=== PATIENT | male | born 1960 | race African-American/Black ===

== ENCOUNTER 2019-02-26 13:21 | Inpatient (IN) | payer OTHER ==
[2019-02-26 18:06] VITALS: BMI 23.0
--- NOTE | 2019-02-26 19:03 | HP ---
CIWA Score Nausea/Vomitin-No Nausea/No Vomiting Muscle Tremors: 4-Moderate,w/Arms Extend Anxiety: 1-Mildly Anxious Agitation: 4-Moderately Restless Paroxysmal Sweats: 3 (Increased facial moisture) Orientation: 0-Oriented Tacttile Disturbances: 0-None Auditory Disturbances: 0-None Visual Disturbances: 0-None Headache: 0-None Present CIWA-Ar Total Score: 12 - Admission Criteria OASAS Guidelines: Admission for Medically Managed Detox: Requires at least one of the followin. CIWA greater than 12 2. Seizures within the past 24 hours 3. Delirium tremens within the past 24 hours 4. Hallucinations within the past 24 hours 5. Acute intervention needed for co occurring medical disorder 6. Acute intervention needed for co occurring psychiatric disorder 7. Severe withdrawal that cannot be handled at a lower level of care (continued vomiting, continued diarrhea, abnormal vital signs) requiring intravenous medication and/or fluids 8. Admission ROS [facility] Chief Complaint: Here for alcohol. Allergies/Adverse Reactions: Allergies Allergy/AdvReac Type Severity Reaction Status Date / Time No Known Allergies Allergy Verified 02/26/19 17:52 History of Present Illness: Here for detox from alcohol. States alcohol is my main problem. Alcohol use began at age 12. Current use began around 6 months ago. Cocaine/crack use began at age 12. States cocaine last used 0n 02/26/19, but does not use daily, Nicotine use began at age 12. Number of cigarettes vary - may some as little as 1 or a pack. Longest length of sobriety 2 years - approx 1994-; PMHx: LBP, Neck pain, Giuseppe knee pain DVT (many years ago). Denies recent visit w / PCP. Encouraged f/u upon discharge. MHHx: Insomnia, Depression, [place]. Denies thoughts of harming self or others. Last Provider visit @ [facility]. Patient Name: Twin Orantes Date: 1960 Address: [address] [place] [address] Sex: Male Rx Written Rx Dispensed Drug Quantity Days Supply Prescriber Name 01/29/2019 02/01/2019 zolpidem tartrate 10 mg tablet 30 30 MeetaMesha Campos 11/23/2018 12/26/2018 zolpidem tartrate 10 mg tablet 30 30 MeetaMesha Campos 10/27/2018 11/09/2018 zolpidem tartrate 10 mg tablet 30 30 Mesha Gold 08/11/2018 08/18/2018 zolpidem tartrate 10 mg tablet 30 30 Laurie Manrique S ( MSN) Exam Limitations: No Limitations - Ebola screening Have you traveled outside of the country in the last 21 days: No Have you had contact with anyone from an Ebola affected area: No Have you been sick,other than usual withdrawal symptoms: No Do you have a fever: No - Review of Systems Constitutional: No Symptoms Reported EENT: reports: Blurred Vision, Dental Problems (Cavities. Missing teeth. No pain. Chews and swallows ok.), Other (States nose itches and runs all the time - has hay fever. Does not take nay medications.) Respiratory: reports: Other (SOb when smokes cigarettes.) Cardiac: reports: No Symptoms Reported GI: reports: Diarrhea (soft/watery light brownish. Denies blood) : reports: No Symptoms Reported Musculoskeletal: reports: Back Pain (Constant achy pain in lower back and neck x 2 years. Used to take naproxen. Pain is a "7". Pain increases w/ movement. States nothing makes it better.), Joint Pain (Giuseppe knee and shoulder pain. Shoulder pain increases w/ laying on side; Knees increase w/ going up and down stairs.) Integumentary: reports: No Symptoms Reported Neuro: reports: Tremors Endocrine: reports: Increased Thirst Hematology: reports: Blood Clots (DVT (R) arm a few years ago.) Psychiatric: reports: Judgement Intact, Orientated x3, Agitated, Anxious, Depressed (Denies thoughts of harming self or others.) Patient History - Patient Medical History Hx Anemia: No Hx Asthma: No Hx Chronic Obstructive Pulmonary Disease (COPD): No Hx Cardiac Disorders: No Hx Hypertension: No Hx Hypercholesterolemia: No HX Cerebrovascular Accident: No Hx Seizures: No Hx Diabetes: No Hx Gastrointestinal Disorders: No Hx Liver Disease: No Hx Genitourinary Disorders: No Hx Sexually Transmitted Disorders: No Hx Renal Disease (ESRD): No Hx Thyroid Disease: No Hx Human Immunodeficiency Virus (HIV): No (NEGATIVE HX) Hx Hepatitis C: No Hx Depression: Yes (ON MEDS) Hx Suicide Attempt: No (DENIES) Hx Bipolar Disorder: Yes (HEMALATHA- RESPERIDAL/HALDOL/SEROQUEL/TRAZODONE) Hx Schizophrenia: No - Patient Surgical History Past Surgical History: Yes Hx Neurologic Surgery: No Hx Cataract Extraction: No Hx Cardiac Surgery: No Hx Lung Surgery: No Hx Breast Surgery: No Hx Breast Biopsy: No Hx Abdominal Surgery: No Hx Appendectomy: No Hx Cholecystectomy: No Hx Genitourinary Surgery: No Hx Section: No Hx Orthopedic Surgery: No Other Surgical History: BILATERAL HYDROCELE SX OVER 10 YRS AGO; DENTAL SX; STITCHES ON HEAD @12 YRS Anesthesia Reaction: No - PPD History Previous Implant?: Yes Documented Results: Negative w/proof Implanted On Prior [facility] Admission?: Yes Date: 04/07/16 Results: NEG 04/07/16 PPD to be Administered?: Yes - Smoking Cessation Smoking history: Current every day smoker Have you smoked in the past 12 months: Yes Aproximately how many cigarettes per day: 10 Hx Chewing Tobacco Use: No Initiated information on smoking cessation: Yes 'Breaking Loose' booklet given: 02/26/19 - Substance & Tx. History Hx Alcohol Use: Yes Hx Substance Use: Yes Substance Use Type: Alcohol, Cocaine Hx Substance Use Treatment: Yes (detox, rehab) - Substances abused Alcohol Substance route: Oral Frequency: Daily Amount used: OZ LIQUOR Age of first use: 12 Date of last use: 02/26/19 Cocaine Substance route: Smoking Frequency: 1-3 times last 30 days Amount used: 10 DIMES Age of first use: 12 Date of last use: 02/26/19 Family Disease History - Family Disease History Family Disease History: Diabetes: Father (HTN-), Other: Father, Sister ( AIDS/KIDNEY FAILURE--) Admission Physical Exam S - Vital Signs Vital Signs: Vital Signs - 24 hr 02/26/19 17:43 Temperature 98.2 F Respiratory 18 Rate Blood Pressure 116/75 - Physical General Appearance: Yes: Mild Distress, Tremorous, Irritable (Speech abrupt, truculent), Sweating (Increased facial moisture), Anxious HEENTM: Yes: EOMI, Normal ENT Inspection, Normal Voice, DONAVAN, Pharynx Normal, Rhinorrhea, Other (Missing teeth. Tooth decay on several teeth.) Respiratory: Yes: Lungs Clear, Normal Breath Sounds, No Respiratory Distress Neck: Yes: No masses,lesions,Nodules, Supple Breast: Yes: Breast Exam Deferred Cardiology: Yes: Regular Rhythm, Regular Rate, S1, S2, Bradycardia Abdominal: Yes: Normal Bowel Sounds, Non Tender, Soft, Protuberent Genitourinary: Yes: Within Normal Limits Back: Yes: Normal Inspection Musculoskeletal: Yes: full range of Motion, Gait Steady Extremities: Yes: Normal Capillary Refill, Normal Range of Motion, Tremors ( tremors at rest and increases w/ arm extension) Neurological: Yes: production trainer II-XII NML intact, Fully Oriented, Alert, Motor Strength 5/5 Integumentary: Yes: Normal Color, Dry, Warm, Diaphoresis (Increased facial moisture) Lymphatic: Yes: Within Normal Limits - Diagnostic (1) Joint pain Current Visit: Yes Status: Acute Qualifiers: Joint pain location: knee Laterality: bilateral Qualified Code(s): M25.561 - Pain in right knee; M25.562 - Pain in left knee (2) Nicotine dependence Current Visit: Yes Status: Chronic Qualifiers: Nicotine product type: cigarettes (3) Alcohol dependence with uncomplicated withdrawal Current Visit: Yes Status: Chronic (4) Chronic low back pain Current Visit: Yes Status: Chronic Qualifiers: Back pain laterality: unspecified Sciatica presence: without sciatica Qualified Code(s): M54.5 - Low back pain; G89.29 - Other chronic pain (5) Cocaine dependence, uncomplicated Current Visit: Yes Status: Chronic (6) Abnormal EKG Current Visit: Yes Status: Chronic Comment: Bradycardia Cleared for Admission S - Detox or Rehab [facility] Level of Care: Medically Managed Detox Regimen/Protocol: Librium Breathalyzer - Breathalyzer Breathalyzer: 0 Urine Drug Screen - Test Device Lot number: [id number] Expiration date: 02/18/20 - Control Is test valid?: Yes - Results Drug screen NEGATIVE: No Urine drug screen results: PARAG-Cocaine Inpatient Rehab Admission - Rehab Decision to Admit Inpatient rehab admission?: No
[2019-02-26] MEDS ORDERED: BISMUTH SUBSALICYLATE 524 MG/30 ML UD PO PRN (19:38)
[2019-02-26] MEDS ORDERED: METHOCARBAMOL 500 MG TABLET PO PRN (19:38)
[2019-02-26] MEDS ORDERED: MENTHOL/PHENOL 1 EACH UD MM PRN (19:38)
[2019-02-26] MEDS ORDERED: MELATONIN 5 MG TABLETS PO PRN (19:38)
[2019-02-26] MEDS ORDERED: MAG HYDROX/AL HYDROX/SIMETH 30 ML UNIT-DOSE CUP PO PRN (19:38)
[2019-02-26] MEDS ORDERED: ACETAMINOPHEN 325 MG TABLET (FP) PO PRN ×2 (19:38)
[2019-02-26] MEDS ORDERED: NICOTINE POLACRILEX 2 MG GUM BUC PRN (19:38)
[2019-02-26] MEDS ORDERED: MAGNESIUM CITRATE 300 ML BOTTLE PO PRN (19:38)
[2019-02-26] MEDS ORDERED: chlordiazePOXIDE HCL 10 MG CAPSULE PO PRN (19:38)
[2019-02-26] MEDS ORDERED: MAGNESIUM HYDROX 2400MG/30ML ORAL SUSPENSION 30 ML CUP PO PRN (19:38)
[2019-02-26] MEDS ORDERED: chlordiazePOXIDE HCL 25 MG CAPSULE PO ONE (20:15)
[2019-02-26] MEDS: THIAMINE HCL 100 MG TABLET (FP) PO SCH (22:55)
[2019-02-27] MEDS: chlordiazePOXIDE HCL 25 MG CAPSULE PO SCH ×3 (00:07→13:00)
[2019-02-27] MEDS: PRENATAL VITAMINS W/ FOLIC ACID TABLET (FP) PO SCH (10:20)
[2019-02-27] MEDS: NICOTINE 14 MG/24 HOURS TOPICAL PATCH TD SCH (10:20)
[2019-02-27 10:38] LABS: ALBUMIN 3.4 g/dl (3.4-5.0); ALK PHOS 68 U/L (45-117); ANION GAP 6 MMOL/L (8-16); BILIRUBIN,TOTAL 0.1 mg/dL (0.2-1); BLOOD UREA NITROGEN 12 mg/dL (7-18); CALCIUM 8.5 mg/dL (8.5-10.1); CHLORIDE 112 mmol/L (98-107); CO2 27 mmol/L (21-32); CREATININE 0.8 mg/dL (0.55-1.3); GLUCOSE,RANDOM 109 mg/dL (74-106); POTASSIUM 4.1 mmol/L (3.5-5.1); SGOT/AST 15 U/L (15-37); SGPT/ALT 28 U/L (13-61); SODIUM 145 mmol/L (136-145); TOT PROT 6.1 g/dl (6.4-8.2)
[2019-02-27 10:45] LABS: HEMATOCRIT 35.4 % (35.4-49); HEMOGLOBIN 11.8 GM/dL (11.7-16.9); MCHC 33.2 g/dl (32.0-35.9); MEAN CELL VOLUME 93.2 fl (80-96); MEAN PLT VOLUME 9.7 fl (7.5-11.1); PLATELET COUNT 258 K/MM3 (134-434); RDW 13.2 % (11.9-15.9); WHITE BLOOD COUNT 5.1 K/mm3 (4.0-10.0)
--- NOTE | 2019-02-27 10:47 | PN ---
S CIWA - CIWA Score Nausea/Vomitin Muscle Tremors: 2 Anxiety: 2 Agitation: 2 Paroxysmal Sweats: 1-Minimal Palms Moist Orientation: 0-Oriented Tacttile Disturbances: 1-Very Mild Itch/Numbness Auditory Disturbances: 1-Very Mild Visual Disturbances: 0-None Headache: 2-Mild CIWA-Ar Total Score: 13 BHS Progress Note (SOAP) Subjective: alert,irritable,anxious,interrupted sleep,tremor Objective: 02/27/19 10:46 Vital Signs Temperature 97.2 F L 02/27/19 09:37 Pulse Rate 62 02/27/19 09:37 Respiratory Rate 18 02/27/19 09:37 Blood Pressure 111/73 02/27/19 09:37 O2 Sat by Pulse Oximetry (%) 02/27/19 10:46 Laboratory Last Values Sodium 145 mmol/L (136-145) 02/27/19 07:00 Potassium 4.1 mmol/L (3.5-5.1) 02/27/19 07:00 Chloride 112 mmol/L (98-107) H 02/27/19 07:00 Carbon Dioxide 27 mmol/L (21-32) 02/27/19 07:00 Anion Gap 6 MMOL/L (8-16) L 02/27/19 07:00 BUN 12 mg/dL (7-18) 02/27/19 07:00 Creatinine 0.8 mg/dL (0.55-1.3) 02/27/19 07:00 Creat Clearance w eGFR 98.94 (>60) 02/27/19 07:00 Random Glucose 109 mg/dL (74-106) H 02/27/19 07:00 Calcium 8.5 mg/dL (8.5-10.1) 02/27/19 07:00 Total Bilirubin 0.1 mg/dL (0.2-1) L 02/27/19 07:00 AST 15 U/L (15-37) 02/27/19 07:00 ALT 28 U/L (13-61) 02/27/19 07:00 Alkaline Phosphatase 68 U/L (45-117) 02/27/19 07:00 Total Protein 6.1 g/dl (6.4-8.2) L 02/27/19 07:00 Albumin 3.4 g/dl (3.4-5.0) 02/27/19 07:00 labs pending Assessment: 02/27/19 10:47 withdrawal symptom Plan: continue detox
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
[2019-02-27 11:10] LABS: PH,URINE 6.5 (5.0-8.0); URINE APPEARANCE CLEAR; URINE BILIRUBIN NEGATIVE (NEGATIVE); URINE COLOR YELLOW; URINE GLUCOSE (UA) NEGATIVE (NEGATIVE); URINE KETONE NEGATIVE (NEGATIVE); URINE LEUK ESTERASE NEGATIVE (NEGATIVE); URINE NITRITE NEGATIVE (NEGATIVE); URINE PROTEIN NEGATIVE (NEGATIVE); URINE UROBILINOGEN 0.2 mg/dL (0.2-1.0)
--- NOTE | 2019-02-27 14:21 | EKG ---
Test Reason : Blood Pressure : / mmHG Vent. Rate : 049 BPM Atrial Rate : 049 BPM P-R Int : 150 ms QRS Dur : 090 ms QT Int : 482 ms P-R-T Axes : 056 069 078 degrees QTc Int : 435 ms SINUS BRADYCARDIA NONSPECIFIC ST ABNORMALITY ABNORMAL ECG NO PREVIOUS ECGS AVAILABLE Confirmed by MD Jaison, Mickey ([id number]) on 02/27/2019 2:20:56 PM Referred By: Confirmed By:Mickey Blackwood MD
[2019-02-27] MEDS: LITHIUM CARBONATE 300 MG CAPSULE (FP) PO SCH ×2 (20:03→21:22)
[2019-02-27] MEDS: NAPROXEN 375 MG TABLET (FP) PO PRN (20:03)
[2019-02-27] MEDS: traZODone HCL 50 MG TABLET (FP) PO SCH ×2 (20:04→21:22)
[2019-02-27] MEDS: OLANZapine 10 MG TABLET PO SCH ×2 (20:04→21:23)
[2019-02-27] MEDS ORDERED: traZODone HCL 50 MG TABLET (FP) PO SCH (22:00)
[2019-02-27] MEDS ORDERED: LITHIUM CARBONATE 300 MG CAPSULE (FP) PO SCH (22:00)
[2019-02-27] MEDS ORDERED: OLANZapine 10 MG TABLET PO SCH (22:00)
[2019-02-27] MEDS: chlordiazePOXIDE 5 MG CAPSULE PO SCH (22:17)
[2019-02-27] MEDS: THIAMINE HCL 100 MG TABLET (FP) PO SCH (22:17)
[2019-02-28] MEDS: chlordiazePOXIDE 5 MG CAPSULE PO SCH ×2 (06:16→12:28)
[2019-02-28] MEDS: PRENATAL VITAMINS W/ FOLIC ACID TABLET (FP) PO SCH (12:11)
[2019-02-28] MEDS: NICOTINE 14 MG/24 HOURS TOPICAL PATCH TD SCH (12:11)
--- NOTE | 2019-02-28 14:21 | PN ---
S CIWA - CIWA Score Nausea/Vomitin-No Nausea/No Vomiting Muscle Tremors: None Anxiety: 0-No Anxiety, at Ease Agitation: 0-Normal Activity Paroxysmal Sweats: No Perspiration Orientation: 0-Oriented Tacttile Disturbances: 0-None Auditory Disturbances: 0-None Visual Disturbances: 0-None Headache: 0-None Present CIWA-Ar Total Score: 0 BHS Progress Note (SOAP) Subjective: s- pt states he is fine- no complaints O: Vital Signs - 24 hr 02/27/19 02/27/19 02/28/19 17:22 21:51 00:30 Temperature 98.1 F 97.3 F L Pulse Rate 58 L 59 L Respiratory 18 18 18 Rate Blood Pressure 105/57 L 137/79 02/28/19 02/28/19 02/28/19 07:05 09:20 13:46 Temperature 97.3 F L 97.5 F L 98.2 F Pulse Rate 59 L 73 76 Respiratory 18 18 18 Rate Blood Pressure 99/58 L 116/57 L 116/75 Laboratory Tests 02/27/19 02/27/19 02/27/19 07:00 07:00 07:00 WBC 5.1 RBC 3.80 L Hgb 11.8 Hct 35.4 MCV 93.2 MCH 31.0 MCHC 33.2 RDW 13.2 Plt Count 258 D MPV 9.7 Sodium 145 Potassium 4.1 Chloride 112 H Carbon Dioxide 27 Anion Gap 6 L BUN 12 Creatinine 0.8 Creat Clearance w eGFR 98.94 Random Glucose 109 H Calcium 8.5 Total Bilirubin 0.1 L AST 15 ALT 28 Alkaline Phosphatase 68 Total Protein 6.1 L Albumin 3.4 Urine Color Urine Appearance Urine pH Ur Specific [place] Urine Protein Urine Glucose (UA) Urine Ketones Urine Blood Urine Nitrite Urine Bilirubin Urine Urobilinogen Ur Leukocyte Esterase RPR Titer Nonreactive 02/27/19 08:00 WBC RBC Hgb Hct MCV MCH MCHC RDW Plt Count MPV Sodium Potassium Chloride Carbon Dioxide Anion Gap BUN Creatinine Creat Clearance w eGFR Random Glucose Calcium Total Bilirubin AST ALT Alkaline Phosphatase Total Protein Albumin Urine Color Yellow Urine Appearance Clear Urine pH 6.5 Ur Specific [place] 1.008 L Urine Protein Negative Urine Glucose (UA) Negative Urine Ketones Negative Urine Blood Negative Urine Nitrite Negative Urine Bilirubin Negative Urine Urobilinogen 0.2 Ur Leukocyte Esterase Negative RPR Titer a/p: continue alcohol detox protocol- pt doing well
[2019-02-28] MEDS ORDERED: chlordiazePOXIDE HCL 10 MG CAPSULE PO PRN (21:00)
[2019-02-28] MEDS: chlordiazePOXIDE HCL 10 MG CAPSULE PO SCH (21:16)
[2019-02-28] MEDS: LITHIUM CARBONATE 300 MG CAPSULE (FP) PO SCH (21:18)
[2019-02-28] MEDS: traZODone HCL 50 MG TABLET (FP) PO SCH (21:18)
[2019-02-28] MEDS: THIAMINE HCL 100 MG TABLET (FP) PO SCH (21:18)
[2019-02-28] MEDS: OLANZapine 10 MG TABLET PO SCH (21:18)
[2019-02-28] MEDS: NAPROXEN 375 MG TABLET (FP) PO PRN (21:25)
[2019-03-01] MEDS: chlordiazePOXIDE HCL 10 MG CAPSULE PO SCH (05:32)
--- NOTE | 2019-03-01 08:58 | DS ---
[facility] Detox Discharge Summary Admission Date: 02/26/19 Discharge Date: 03/01/19 - History Present History: Alcohol Dependence, Cocaine Dependence - Physical Exam Results Vital Signs: Vital Signs Temperature 96.3 F L 03/01/19 06:23 Pulse Rate 66 03/01/19 06:23 Respiratory Rate 18 03/01/19 06:23 Blood Pressure 104/63 03/01/19 06:23 O2 Sat by Pulse Oximetry (%) - Treatment Hospital Course: Detox Protocol Followed, Detoxed Safely, Responded well, Discharged Condition Good, Rehab Referral Accepted - Medication Discharge Medications: Ambulatory Orders traZODone HCL [Desyrel -] 150 mg PO HS #30 tablet 05/20/16 Hydroxyzine HCl 10 mg PO HS 02/26/19 [place] Carbonate [Eskalith -] 900 mg PO HS 02/26/19 Olanzapine [Zyprexa] 5 mg PO BID 02/26/19 - Diagnosis (1) Alcohol dependence with uncomplicated withdrawal Current Visit: Yes Status: Chronic (2) Cocaine dependence, uncomplicated Current Visit: Yes Status: Chronic (3) Joint pain Current Visit: Yes Status: Acute Qualifiers: Joint pain location: knee Laterality: bilateral Qualified Code(s): M25.561 - Pain in right knee; M25.562 - Pain in left knee (4) Substance-induced sleep disorder Current Visit: Yes Status: Acute (5) Abnormal EKG Current Visit: Yes Status: Chronic (6) Bipolar II disorder Current Visit: Yes Status: Chronic (7) Chronic low back pain Current Visit: Yes Status: Chronic Qualifiers: Back pain laterality: unspecified Sciatica presence: without sciatica Qualified Code(s): M54.5 - Low back pain; G89.29 - Other chronic pain (8) Nicotine dependence Current Visit: Yes Status: Chronic Qualifiers: Nicotine product type: cigarettes Substance use status: uncomplicated Qualified Code(s): F17.210 - Nicotine dependence, cigarettes, uncomplicated (9) DVT of right axillary vein, chronic Current Visit: Yes Status: Resolved (10) Hydrocele of spermatic cord Current Visit: Yes Status: Resolved (11) Bipolar I disorder, most recent episode manic Current Visit: No Status: Acute - AMA Did Patient Leave Against Medical Advice: No (pt referred to [facility])
[2019-03-01 09:09] VITALS: BP 118/74; PULSE 78; TEMP 97.3
[2019-03-01] MEDS: NICOTINE 14 MG/24 HOURS TOPICAL PATCH TD SCH (11:20)
[2019-03-01] MEDS: PRENATAL VITAMINS W/ FOLIC ACID TABLET (FP) PO SCH (11:20)
== END 2019-03-01 12:05 | disposition home or self-care (01) | DRG 774 ==
LOC: YASAS 13:21 → Y6N 18:44
PROVIDERS: ADMIT Surgery; ATTEND Surgery
PROC: HZ2ZZZZ Detoxification Services for Substance Abuse Treatment (ICD-10-PCS; principal; 2019-02-26)
DX: F10.230 Alcohol dependence with withdrawal, uncomplicated (principal); F14.20 Cocaine dependence, uncomplicated; F17.210 Nicotine dependence, cigarettes, uncomplicated; F19.282 Other psychoactive substance dependence with psychoactive substance-induced sleep disorder; F31.81 Bipolar II disorder; M25.561 Pain in right knee; M25.562 Pain in left knee; R94.31 Abnormal electrocardiogram [ECG] [EKG]; M54.5 Low back pain; G89.29 Other chronic pain; R00.1 Bradycardia, unspecified; Z86.718 Personal history of other venous thrombosis and embolism
CPT/HCPCS: 36415; 71046-TC-FY; 80053; 81003; 85027; 86593; 93005; 93010

== ENCOUNTER 2022-05-31 12:11 | Inpatient (IN) | payer OTHER ==
[2022-05-31 14:18] VITALS: BMI 17.6
[2022-05-31] MEDS ORDERED: MAGNESIUM HYDROX 2400MG/30ML ORAL SUSPENSION 30 ML CUP PO PRN (15:30)
[2022-05-31] MEDS ORDERED: DICYCLOMINE HCL 10 MG CAPSULE PO PRN (15:30)
[2022-05-31] MEDS ORDERED: IBUPROFEN 400 MG TABLET (FP) PO PRN (15:30)
[2022-05-31] MEDS ORDERED: LOPERAMIDE HCL 2 MG CAPSULE PO PRN (15:30)
[2022-05-31] MEDS ORDERED: IBUPROFEN 600 MG TABLET (FP) PO PRN (15:30)
[2022-05-31] MEDS ORDERED: chlordiazePOXIDE HCL 25 MG CAPSULE PO PRN (15:30)
[2022-05-31] MEDS ORDERED: MAG HYDROX/AL HYDROX/SIMETH 30 ML UNIT-DOSE CUP PO PRN (15:30)
[2022-05-31] MEDS ORDERED: ONDANSETRON *ODT* 4 MG TABLET SL PRN (15:30)
[2022-05-31] MEDS ORDERED: BISMUTH SUBSALICYLATE 262 MG/15 ML BTL PO PRN (15:30)
[2022-05-31] MEDS ORDERED: BENZOCAINE/MENTHOL (CHLORASEPTIC ) LOZENGE MM PRN (15:30)
[2022-05-31] MEDS ORDERED: METHOCARBAMOL 500 MG TABLET PO PRN (15:30)
[2022-05-31] MEDS ORDERED: NICOTINE 10 MG CARTRIDGE (INHALER) IH PRN (15:30)
[2022-05-31] MEDS ORDERED: MAGNESIUM CITRATE 300 ML BOTTLE PO PRN (15:30)
[2022-05-31] MEDS ORDERED: ACETAMINOPHEN 325 MG TABLET (FP) PO PRN ×2 (15:30)
[2022-05-31] MEDS: hydrOXYzine PAMOATE 25 MG CAPSULE (FP) PO SCH ×2 (18:13→22:32)
[2022-05-31] MEDS: chlordiazePOXIDE HCL 25 MG CAPSULE PO SCH (22:32)
[2022-05-31] MEDS: THIAMINE HCL 100 MG TABLET (FP) PO SCH (22:32)
[2022-05-31] MEDS: MELATONIN 5 MG TABLETS PO SCH (22:32)
[2022-06-01] MEDS: chlordiazePOXIDE HCL 25 MG CAPSULE PO SCH ×4 (05:45→23:55)
[2022-06-01] MEDS: hydrOXYzine PAMOATE 25 MG CAPSULE (FP) PO SCH ×5 (05:45→23:56)
[2022-06-01] MEDS: PRENATAL VITAMINS W/ FOLIC ACID TABLET (FP) PO SCH (10:24)
[2022-06-01] MEDS: NICOTINE 14 MG/24 HOURS TOPICAL PATCH TD SCH (10:25)
[2022-06-01 11:35] LABS: HEMATOCRIT 35.9 % (35.4-49); HEMOGLOBIN 11.9 GM/dL (11.7-16.9); MCH 32.5 pg (25.7-33.7); MCHC 33.2 g/dl (32.0-35.9); PLATELET COUNT 351 10^3/uL (134-434); RBC 3.66 M/mm3 (4.00-5.60); WHITE BLOOD COUNT 4.4 K/mm3 (4.0-10.0)
[2022-06-01 12:56] LABS: CREATININE 0.7 mg/dL (0.55-1.3)
[2022-06-01 12:58] LABS: ALBUMIN 3.4 g/dl (3.4-5.0); BLOOD UREA NITROGEN 11.3 mg/dL (7-18); CALCIUM 9.9 mg/dL (8.5-10.1)
[2022-06-01 13:01] LABS: BILIRUBIN,TOTAL 0.3 mg/dL (0.2-1); TOT PROT 6.7 g/dl (6.4-8.2)
[2022-06-01] MEDS: MELATONIN 5 MG TABLETS PO SCH (22:33)
[2022-06-01] MEDS: THIAMINE HCL 100 MG TABLET (FP) PO SCH (22:33)
[2022-06-02] MEDS: chlordiazePOXIDE HCL 25 MG CAPSULE PO SCH ×4 (05:40→22:25)
[2022-06-02] MEDS: hydrOXYzine PAMOATE 25 MG CAPSULE (FP) PO SCH ×5 (05:40→22:25)
[2022-06-02] MEDS: NICOTINE 14 MG/24 HOURS TOPICAL PATCH TD SCH (10:18)
[2022-06-02] MEDS: PRENATAL VITAMINS W/ FOLIC ACID TABLET (FP) PO SCH (10:18)
[2022-06-02] MEDS: THIAMINE HCL 100 MG TABLET (FP) PO SCH (22:25)
[2022-06-02] MEDS: MELATONIN 5 MG TABLETS PO SCH (22:25)
[2022-06-03] MEDS ORDERED: chlordiazePOXIDE HCL 10 MG CAPSULE PO PRN
[2022-06-03] MEDS: chlordiazePOXIDE HCL 10 MG CAPSULE PO SCH ×4 (06:43→22:40)
[2022-06-03] MEDS: hydrOXYzine PAMOATE 25 MG CAPSULE (FP) PO SCH ×5 (06:44→22:38)
[2022-06-03] MEDS: PRENATAL VITAMINS W/ FOLIC ACID TABLET (FP) PO SCH (11:17)
[2022-06-03] MEDS: NICOTINE 14 MG/24 HOURS TOPICAL PATCH TD SCH (11:17)
[2022-06-03] MEDS: THIAMINE HCL 100 MG TABLET (FP) PO SCH (22:38)
[2022-06-03] MEDS: MELATONIN 5 MG TABLETS PO SCH (22:38)
[2022-06-04] MEDS ORDERED: chlordiazePOXIDE HCL 10 MG CAPSULE PO SCH (05:00)
[2022-06-04] MEDS: hydrOXYzine PAMOATE 25 MG CAPSULE (FP) PO SCH ×2 (06:26→10:12)
[2022-06-04 09:38] VITALS: BP 99/62; PULSE 57; TEMP 97
[2022-06-04] MEDS: PRENATAL VITAMINS W/ FOLIC ACID TABLET (FP) PO SCH (10:11)
[2022-06-04] MEDS: NICOTINE 14 MG/24 HOURS TOPICAL PATCH TD SCH (10:12)
[2022-06-05] MEDS ORDERED: chlordiazePOXIDE HCL 10 MG CAPSULE PO ONE (05:00)
== END 2022-06-04 10:48 | disposition home or self-care (01) | DRG 775 ==
LOC: YASAS 12:11 → Y3N 15:39
PROVIDERS: ADMIT Allergy & Immunology; ATTEND Surgery
PROC: HZ2ZZZZ Detoxification Services for Substance Abuse Treatment (ICD-10-PCS; principal; 2022-05-31)
DX: F10.230 Alcohol dependence with withdrawal, uncomplicated (principal); F17.210 Nicotine dependence, cigarettes, uncomplicated; F31.9 Bipolar disorder, unspecified; M25.561 Pain in right knee; M25.562 Pain in left knee; M54.50 Low back pain, unspecified; G89.29 Other chronic pain; R63.4 Abnormal weight loss; Z68.1 Body mass index [BMI] 19.9 or less, adult; S64 Injury of nerves at wrist and hand level
CPT/HCPCS: 36415; 80053; 85027; 86780; 87811; C9803-CS; U0003; U0005